=== PATIENT | male | born 1965 | race American Indian/Alaskan Native ===

== ENCOUNTER 2018-10-20 03:33 | Emergency (ER) | payer MEDICARE, MEDICAID ==
[~2018-10-20] VITALS: Ht 177.8 cm; Wt 97.5 kg
[2018-10-20 04:00] VITALS: BP 191/103
[2018-10-20] MEDS ORDERED: cloNIDine HCL 0.1 MG TAB PO ONE (04:15)
[2018-10-20] MEDS ORDERED: IPRATROPIUM BROM 0.5 MG/2.5ML INH SOL NEB ONE (05:45)
[2018-10-20] MEDS ORDERED: ALBUTEROL SULF 2.5 MG/0.5ML(0.5%) NEB SOLN NEB ONE (05:45)
[2018-10-20] MEDS ORDERED: hydrALAZINE HCL 20 MG/ML VL IM ONE (06:15)
== END 2018-10-20 07:18 | disposition home or self-care (01) ==
LOC: ER 03:37
DX: J40 Bronchitis, not specified as acute or chronic (principal)
CPT/HCPCS: 71045; 82962; 94640; 96372; 99283; J0360; J7611; J7644

== ENCOUNTER 2019-05-19 18:00 | Inpatient (IN) | payer OTHER ==
[~2019-05-19] VITALS: Ht 177.8 cm; Wt 92.7 kg
[2019-05-19 19:13] LABS: Basophils # (auto) 0.1 uL; Basophils % (auto) 0.6 % (0.0-2.0); Eosinophils # (auto) 0.1 uL; Eosinophils % (auto) 0.3 % (0.0-7.0); Hematocrit 45.9 % (41.0-53.0); Hemoglobin 15.4 g/dL (13.5-17.5); Lymphocytes # (auto) 1.2 uL; Lymphocytes % (auto) 6.2 % (10.0-50.0); Mean Corpuscular Hemoglobin 28.9 pg (28.0-32.0); Mean Corpuscular Hgb Conc. 33.7 g/dL (32.0-36.0); Mean Corpuscular Volume 85.9 fL (80.0-100.0); Monocytes # (auto) 1.2 uL; Monocytes % (auto) 6.2 % (0.0-12.0); Neutrophils # (auto) 17.2 uL; Neutrophils % (auto) 86.7 % (37.0-80.0); Platelet Count (auto) 265 10^3/uL (140-450); Red Blood Cells 5.34 10^6/uL (4.5-5.90); Red Cell Distribution Width 15.9 % (11.8-14.3); White Blood Cell 19.8 10^3/uL (4.4-10.8)
[2019-05-19 19:34] LABS: Albumin 4.4 g/dL (3.4-5.0); Calcium 9.1 mg/dL (8.5-10.1)
[2019-05-19 19:40] LABS: Bilirubin, Total 0.6 mg/dL (0.2-1.0); Total Protein 8.7 g/dL (6.4-8.2)
[2019-05-19 20:02] LABS: Potassium 2.8 mmol/L (3.5-5.1)
[2019-05-19] MEDS ORDERED: POTASSIUM CHL 20 Meq TABLET PO ONE (20:15)
[2019-05-19] MEDS ORDERED: ONDANSETRON HCL 4 MG/2 ML VIAL IV ONE (20:15)
[2019-05-19] MEDS ORDERED: SODIUM CHLORIDE 0.9% 2,000 ML IV ONE (20:15)
[2019-05-19] MEDS ORDERED: FAMOTIDINE (10MG/ML) 2ML VL IV ONE (21:45)
[2019-05-19 23:18] LABS: Urine Bacteria FEW /hpf (None Seen); Urine Blood 2+ /uL (Negative); Urine Hyaline Cast FEW /lpf (0 - 2); Urine Mucus FEW (None Seen); Urine WBC 1 /hpf (0 - 3)
[2019-05-19 23:33] LABS: Alcohol, Urine < 3.0 mg/dL (0-5); Amphetamine Screen, Urine NEGATIVE (NEGATIVE); Barbiturate Scree,Urine NEGATIVE (NEGATIVE); Benzodiazephine Screen, Urine NEGATIVE (NEGATIVE); Cannabinoid Screen, Urine POSITIVE (NEGATIVE); Cocaine Screen, Urine NEGATIVE (NEGATIVE); Opiate Scree,Urine NEGATIVE (NEGATIVE); Phencyclidine Screen, Urine NEGATIVE (NEGATIVE)
[2019-05-20] MEDS ORDERED: MORPHINE SULF INJ 2 MG/ML SYRINGE 1ML IV PRN (02:45)
[2019-05-20] MEDS ORDERED: ONDANSETRON HCL 4 MG/2 ML VIAL IV PRN (02:45)
[2019-05-20] MEDS ORDERED: DEXTROSE (50%) 50ML SYRG IV PRN (02:45)
[2019-05-20] MEDS ORDERED: ACETAMINOPHEN 325 MG TAB PO PRN (02:45)
[2019-05-20] MEDS ORDERED: SODIUM CHLORIDE 0.9% 500 ML IV ONE (02:45)
[2019-05-20] MEDS ORDERED: NITROGLYCERIN 0.4 MG SL TAB SL PRN (02:45)
[2019-05-20] MEDS ORDERED: TEMAZEPAM 15 MG CAP PO PRN (02:45)
[2019-05-20] MEDS ORDERED: D5W/SOD CHLO 0.9% 1,000 ML IV SCH (02:45)
[2019-05-20] MEDS ORDERED: ENALAPRILAT 1.25 MG/ML-1ML VIAL IV ONE (03:00)
[2019-05-20] MEDS ORDERED: ENOXAPARIN SOD 100 MG/1 ML SYRINGE SC ONE (03:00)
--- NOTE | 2019-05-20 04:00 | NUR ---
Telemetry admit from ER MONI WILILNGHAM admitted to Telemetry. Patient oriented to KARINA GARCIA, primary RN, unit, room 221, bed A, and unit policies regarding patient care and visiting hours. Patient now on continuous telemetry monitoring, tele box #[id number] and telemetry reading on arrival to unit is SR. Patient weighed by bedscale and encouraged to call if they need something. All questions and concerns addressed, call light explained, patient verbalized understanding.
[2019-05-20] MEDS ORDERED: CLON0.1T PO (04:29)
[2019-05-20] MEDS ORDERED: OXYB5SYP4 PO (04:29)
[2019-05-20] MEDS ORDERED: HYDR50TA15 PO (04:29)
[2019-05-20] MEDS ORDERED: PRAV20TA3 PO (04:29)
[2019-05-20] MEDS ORDERED: RANI150C11 PO (04:29)
[2019-05-20] MEDS ORDERED: GEMF600T7 PO (04:29)
[2019-05-20] MEDS ORDERED: FLUO-125 PO (04:29)
[2019-05-20] MEDS ORDERED: METF-370 PO (04:29)
[2019-05-20] MEDS ORDERED: LABE200T18 PO (04:29)
[2019-05-20] MEDS ORDERED: INFLUENZA QUAD 2019-2020 0.5ml SYRG IM ONE (04:45)
[2019-05-20] MEDS ORDERED: PNEUMOCOCCAL VACC POLYS 25 MCG/0.5 ML VIAL IM ONE (04:45)
[2019-05-20 05:00] VITALS: BP 164/78
[2019-05-20] MEDS: InsuLIN REG 1unit/0.01ml Soln (100units/ml) SC SCH ×4 (06:00→23:41)
[2019-05-20] MEDS: cloNIDine HCL 0.1 MG TAB PO SCH ×3 (06:11→21:38)
[2019-05-20] MEDS: ACCU-CHEK COMFORT CURVE STRIP VI SCH ×4 (06:11→23:41)
--- NOTE | 2019-05-20 07:01 | NUR ---
Patients home meds taken to pharmacy
--- NOTE | 2019-05-20 07:30 | NUR ---
Opening Shift Note Assumed care of patient, resting in bed with eyes closed, awoken by name. Patient is A & O x4, no s/s of distress or SOB, no pain noted or reported. Respirations are even and unlabored on RA. Updated on POC and instructed to call for assistance as needed, patient verbalized understanding. Bed locked in lowest position, call light within reach, bed rails up x2. Will continue to monitor Q1h and PRN.
[2019-05-20 08:44] VITALS: BP 159/82
[2019-05-20] MEDS ORDERED: cefTRIAXone 1GM/50ML D5W 50 ML IV SCH (09:00)
[2019-05-20] MEDS ORDERED: ASPirin 81 mg TAB PO SCH (10:00)
[2019-05-20] MEDS: hydrALAZINE HCL 25 MG TAB PO SCH ×2 (10:37→21:37)
[2019-05-20] MEDS: LABETALOL HCL 200 MG TAB PO SCH ×2 (10:38→21:38)
[2019-05-20] MEDS: GEMFIBROZIL 600 MG TAB PO SCH ×2 (10:38→21:38)
[2019-05-20] MEDS: PANTOPRAZOLE 40 MG TAB PO SCH (10:39)
[2019-05-20 11:41] LABS: Albumin 3.3 g/dL (3.4-5.0); Calcium 8.2 mg/dL (8.5-10.1)
[2019-05-20 11:44] LABS: BUN/Creatinine Ratio 9.3; Bilirubin, Total 0.5 mg/dL (0.2-1.0); Total Protein 6.8 g/dL (6.4-8.2)
[2019-05-20 12:05] LABS: Potassium 2.9 mmol/L (3.5-5.1)
--- NOTE | 2019-05-20 12:10 | NUR ---
Critical Lab Value Potassium of 2.9, notified MD Turner, will input new orders for replacement.
[2019-05-20] MEDS ORDERED: POTASSIUM CHLORIDE 40 MEQ, LIDOCAINE 1% (LOCAL ANESTH.) 4 ML in SODIUM CHL 0.9% 100 ML IV ONE (12:30)
[2019-05-20] MEDS ORDERED: POTASSIUM CHL 20 Meq TABLET PO ONE (12:30)
[2019-05-20 13:00] VITALS: BP 151/61
[2019-05-20 17:00] VITALS: BP 154/75
--- NOTE | 2019-05-20 18:39 | NUR ---
PATIENT ROUNDS PATIENT SITTING UP IN BED EATING DINNER WITH FAMILY AT BEDSIDE. NO S/S OF DISTRESS OR SOB, NO PAIN NOTED OR REPORTED AT THIS TIME. WILL ENDORSE CARE TO WEED INSPECTOR RN.
[2019-05-20] MEDS: PRAVASTATIN SODIUM 20 MG TAB PO SCH (21:39)
[2019-05-20 22:00] VITALS: BP 170/97
[2019-05-20] MEDS ORDERED: ATORVASTATIN 20 MG TAB PO SCH (22:00)
[2019-05-21] MEDS: cloNIDine HCL 0.1 MG TAB PO SCH ×5 (04:21→22:14)
[2019-05-21] MEDS: ACCU-CHEK COMFORT CURVE STRIP VI SCH ×3 (05:25→18:19)
[2019-05-21] MEDS: InsuLIN REG 1unit/0.01ml Soln (100units/ml) SC SCH ×3 (05:25→18:00)
[2019-05-21 05:56] VITALS: BP 197/101
[2019-05-21 06:50] LABS: Basophils # (auto) 0 uL; Basophils % (auto) 0.4 % (0.0-2.0); Eosinophils # (auto) 0.2 uL; Eosinophils % (auto) 1.9 % (0.0-7.0); Hematocrit 42.1 % (41.0-53.0); Hemoglobin 13.9 g/dL (13.5-17.5); Lymphocytes # (auto) 1.6 uL; Lymphocytes % (auto) 16.8 % (10.0-50.0); Mean Corpuscular Hgb Conc. 33.1 g/dL (32.0-36.0); Mean Corpuscular Volume 87.6 fL (80.0-100.0); Monocytes % (auto) 10.3 % (0.0-12.0); Neutrophils # (auto) 6.6 uL; Neutrophils % (auto) 70.6 % (37.0-80.0); Platelet Count (auto) 199 10^3/uL (140-450); Red Blood Cells 4.81 10^6/uL (4.5-5.90); Red Cell Distribution Width 16.3 % (11.8-14.3); White Blood Cell 9.3 10^3/uL (4.4-10.8)
[2019-05-21 07:09] LABS: BUN/Creatinine Ratio 12.8; Calcium 8.2 mg/dL (8.5-10.1); Potassium 3.2 mmol/L (3.5-5.1)
[2019-05-21] MEDS ORDERED: ADENOSINE 79 MG in GIVE UN-DILUTED 0 ML IV STA (08:22)
[2019-05-21 09:00] VITALS: BP 186/112
[2019-05-21] MEDS ORDERED: cloNIDine HCL 0.1 MG TAB ONE (12:00)
[2019-05-21] MEDS ORDERED: cloNIDine HCL 0.1 MG TAB PO ONE (12:15)
[2019-05-21] MEDS: PANTOPRAZOLE 40 MG TAB PO SCH (12:55)
[2019-05-21] MEDS: GEMFIBROZIL 600 MG TAB PO SCH ×2 (12:56→22:15)
[2019-05-21] MEDS: LABETALOL HCL 200 MG TAB PO SCH ×2 (12:56→22:15)
[2019-05-21] MEDS: ASPirin 81 mg TAB PO SCH (12:56)
[2019-05-21] MEDS ORDERED: POTASSIUM CHL 10 Meq TABLET PO ONE (14:30)
[2019-05-21] MEDS: NIFEdipine ER 30 MG TAB PO SCH (16:03)
[2019-05-21 16:49] VITALS: BP 190/82
[2019-05-21 16:49] LABS: Protein, Urine 132.4 mg/dL (0.0-11.9)
[2019-05-21 17:09] LABS: Phosphorus 2.8 mg/dL (2.5-4.90)
[2019-05-21] MEDS: hydrALAZINE HCL 25 MG TAB PO SCH (18:37)
--- NOTE | 2019-05-21 19:10 | NUR ---
Opening Shift Note Assumed care of patient, awake and alert. No S/S of distress/SOB or pain. POC discussed and questions answered. Bed is locked in lowest positon with side rails up x2 for safety, call light is within reach and encouraged to call if needs anything. Will continue to monitor for changes Q1hr and PRN.
[2019-05-21 22:00] VITALS: BP 146/80
[2019-05-21] MEDS: DOXAZOSIN MESYL 2 MG TAB PO SCH (22:14)
[2019-05-21] MEDS: PRAVASTATIN SODIUM 20 MG TAB PO SCH (22:15)
[2019-05-22] MEDS: ACCU-CHEK COMFORT CURVE STRIP VI SCH ×5 (00:18→23:53)
[2019-05-22] MEDS: hydrALAZINE HCL 25 MG TAB PO SCH ×2 (02:11→09:44)
[2019-05-22 05:00] VITALS: BP 139/78
[2019-05-22] MEDS: InsuLIN REG 1unit/0.01ml Soln (100units/ml) SC SCH ×5 (05:49→23:54)
[2019-05-22] MEDS: cloNIDine HCL 0.1 MG TAB PO SCH (05:49)
[2019-05-22 09:00] VITALS: BP 154/90
[2019-05-22] MEDS: GEMFIBROZIL 600 MG TAB PO SCH ×2 (09:44→22:05)
[2019-05-22] MEDS: ASPirin 81 mg TAB PO SCH (09:45)
[2019-05-22] MEDS: LABETALOL HCL 200 MG TAB PO SCH ×2 (09:45→22:06)
[2019-05-22] MEDS: NIFEdipine ER 30 MG TAB PO SCH (09:45)
[2019-05-22] MEDS: PANTOPRAZOLE 40 MG TAB PO SCH (09:45)
[2019-05-22] MEDS ORDERED: POTASSIUM CHL 10 Meq TABLET PO SCH (10:00)
[2019-05-22] MEDS: HYDROcodone-ACET 5/325MG TAB PO PRN ×2 (10:14→20:30)
[2019-05-22 10:57] LABS: BUN/Creatinine Ratio 16.6; Calcium 8.8 mg/dL (8.5-10.1); Potassium 3.4 mmol/L (3.5-5.1)
--- NOTE | 2019-05-22 12:18 | NUR ---
Nutrition Assessment Notes please see attached link for complete assessment Est. Needs BW 94 [id number] kcal (23-25 kcal/kgBW), 75-94 gms pro (0.8-1.0 gms/kgBW r/t elev RFT ). Will continue to monitor pertinent labs and reassess nutrient need prn Addendum: 05/22/19 at [address] Amended: Links added.
[2019-05-22] MEDS: SPIRONOLACTONE 25 MG TAB PO SCH ×2 (12:26→17:31)
[2019-05-22 13:00] VITALS: BP 157/85
[2019-05-22 17:00] VITALS: BP 162/90
--- NOTE | 2019-05-22 19:25 | NUR ---
Opening Shift Note Received report from Jasmin ROBBINS. Assumed care of patient, awake and alert, family at bedside. No S/S of distress/SOB or pain. Instructed on POC and to call for assist PRN, will continue to monitor for changes Q1hr and PRN.
[2019-05-22 22:00] VITALS: BP 186/96
[2019-05-22] MEDS: PRAVASTATIN SODIUM 20 MG TAB PO SCH (22:05)
[2019-05-22] MEDS: DOXAZOSIN MESYL 2 MG TAB PO SCH (22:06)
[2019-05-23 05:00] VITALS: BP 166/119
[2019-05-23] MEDS: ACCU-CHEK COMFORT CURVE STRIP VI SCH ×4 (06:19→23:44)
[2019-05-23] MEDS: SPIRONOLACTONE 25 MG TAB PO SCH ×2 (06:19→18:12)
[2019-05-23] MEDS: InsuLIN REG 1unit/0.01ml Soln (100units/ml) SC SCH ×4 (06:20→23:45)
[2019-05-23 07:16] LABS: BUN/Creatinine Ratio 17.8; Calcium 9.1 mg/dL (8.5-10.1); Potassium 3.4 mmol/L (3.5-5.1)
[2019-05-23 09:29] VITALS: BP 188/110
[2019-05-23] MEDS ORDERED: cloNIDine HCL 0.1 MG TAB PO ONE (09:45)
[2019-05-23] MEDS ORDERED: POTASSIUM CHL 20 Meq TABLET PO ONE (09:45)
[2019-05-23] MEDS: ASPirin 81 mg TAB PO SCH (10:16)
[2019-05-23] MEDS: GEMFIBROZIL 600 MG TAB PO SCH ×2 (10:16→22:14)
[2019-05-23] MEDS: NIFEdipine ER 30 MG TAB PO SCH (10:17)
[2019-05-23] MEDS: CHOLECALCIFEROL (VITD3) 1,000 UNIT TAB PO SCH (10:18)
[2019-05-23] MEDS: PANTOPRAZOLE 40 MG TAB PO SCH (10:18)
[2019-05-23] MEDS: LABETALOL HCL 200 MG TAB PO SCH ×2 (10:33→22:14)
[2019-05-23] MEDS: DOXAZOSIN MESYL 2 MG TAB PO SCH ×2 (12:14→22:13)
[2019-05-23 13:00] VITALS: BP 177/102
[2019-05-23 16:51] VITALS: BP 156/87
[2019-05-23] MEDS ORDERED: PNEUMOCOCCAL VACC POLYS 25 MCG/0.5 ML VIAL IM ONE (17:30)
[2019-05-23] MEDS ORDERED: INFLUENZA QUAD 2019-2020 0.5ml SYRG IM ONE (17:30)
--- NOTE | 2019-05-23 19:20 | NUR ---
Opening Shift Note Received report from Jasmin ROBBINS. Assumed care of patient, awake and alert. No S/S of distress/SOB or pain. Instructed on POC and to call for assist PRN, will continue to monitor for changes Q1hr and PRN.
[2019-05-23] MEDS: HYDROcodone-ACET 5/325MG TAB PO PRN (21:11)
[2019-05-23 22:00] VITALS: BP 157/100
[2019-05-23] MEDS: PRAVASTATIN SODIUM 20 MG TAB PO SCH (22:14)
[2019-05-23] MEDS: cloNIDine HCL 0.1 MG TAB PO PRN (23:53)
[2019-05-24 05:00] VITALS: BP 156/103
[2019-05-24] MEDS: SPIRONOLACTONE 25 MG TAB PO SCH ×2 (06:24→17:52)
[2019-05-24] MEDS: ACCU-CHEK COMFORT CURVE STRIP VI SCH ×4 (06:24→23:38)
[2019-05-24] MEDS: InsuLIN REG 1unit/0.01ml Soln (100units/ml) SC SCH ×4 (06:25→23:38)
[2019-05-24 06:38] LABS: Basophils # (auto) 0.1 uL; Basophils % (auto) 0.9 % (0.0-2.0); Eosinophils # (auto) 0.3 uL; Eosinophils % (auto) 2.3 % (0.0-7.0); Hematocrit 47.8 % (41.0-53.0); Hemoglobin 15.5 g/dL (13.5-17.5); Lymphocytes # (auto) 1.2 uL; Lymphocytes % (auto) 10.4 % (10.0-50.0); Mean Corpuscular Hemoglobin 28.5 pg (28.0-32.0); Mean Corpuscular Hgb Conc. 32.5 g/dL (32.0-36.0); Mean Corpuscular Volume 87.8 fL (80.0-100.0); Monocytes # (auto) 1.1 uL; Monocytes % (auto) 9.3 % (0.0-12.0); Neutrophils # (auto) 8.9 uL; Neutrophils % (auto) 77.1 % (37.0-80.0); Platelet Count (auto) 241 10^3/uL (140-450); Red Blood Cells 5.44 10^6/uL (4.5-5.90); Red Cell Distribution Width 15.8 % (11.8-14.3); White Blood Cell 11.6 10^3/uL (4.4-10.8)
[2019-05-24] MEDS: HYDROcodone-ACET 5/325MG TAB PO PRN ×3 (06:57→20:26)
[2019-05-24 07:10] LABS: BUN/Creatinine Ratio 19.5; Calcium 9.2 mg/dL (8.5-10.1)
[2019-05-24 09:00] VITALS: BP 164/108
[2019-05-24] MEDS ORDERED: VALSARTAN 80 MG TAB PO SCH (10:00)
[2019-05-24] MEDS: DOXAZOSIN MESYL 2 MG TAB PO SCH ×2 (10:14→21:21)
[2019-05-24] MEDS: LABETALOL HCL 200 MG TAB PO SCH ×2 (10:14→21:23)
[2019-05-24] MEDS: GEMFIBROZIL 600 MG TAB PO SCH ×2 (10:15→21:21)
[2019-05-24] MEDS: PANTOPRAZOLE 40 MG TAB PO SCH (10:15)
[2019-05-24] MEDS: CHOLECALCIFEROL (VITD3) 1,000 UNIT TAB PO SCH (10:15)
[2019-05-24] MEDS: NIFEdipine ER 30 MG TAB PO SCH (10:15)
[2019-05-24 13:00] VITALS: BP 160/89
[2019-05-24 17:00] VITALS: BP 142/78
--- NOTE | 2019-05-24 19:45 | NUR ---
Opening Shift Note Assumed care of patient, awake and alert. No S/S of distress/SOB or pain. Family at bedside. Instructed on POC and to call for assist PRN, patient verbalized understanding, call light within reach, will continue to monitor for changes Q1hr and PRN.
[2019-05-24] MEDS: PRAVASTATIN SODIUM 20 MG TAB PO SCH (21:21)
[2019-05-24 22:00] VITALS: BP 148/90
[2019-05-25] MEDS: HYDROcodone-ACET 5/325MG TAB PO PRN ×3 (04:50→19:30)
[2019-05-25 05:00] VITALS: BP 168/98
[2019-05-25] MEDS: SPIRONOLACTONE 25 MG TAB PO SCH ×3 (05:48→22:00)
[2019-05-25] MEDS: ACCU-CHEK COMFORT CURVE STRIP VI SCH ×4 (05:49→23:49)
[2019-05-25] MEDS: InsuLIN REG 1unit/0.01ml Soln (100units/ml) SC SCH ×4 (05:49→23:48)
[2019-05-25 06:27] LABS: BUN/Creatinine Ratio 18.9; Calcium 9.2 mg/dL (8.5-10.1); Potassium 4.2 mmol/L (3.5-5.1)
[2019-05-25] MEDS: cloNIDine HCL 0.1 MG TAB PO PRN (07:03)
[2019-05-25 09:00] VITALS: BP 165/101
[2019-05-25] MEDS: DOXAZOSIN MESYL 2 MG TAB PO SCH (09:42)
[2019-05-25] MEDS: PANTOPRAZOLE 40 MG TAB PO SCH (09:43)
[2019-05-25] MEDS: GEMFIBROZIL 600 MG TAB PO SCH ×2 (09:43→22:00)
[2019-05-25] MEDS: LABETALOL HCL 200 MG TAB PO SCH ×4 (09:43→22:06)
[2019-05-25] MEDS: CHOLECALCIFEROL (VITD3) 1,000 UNIT TAB PO SCH (09:43)
[2019-05-25] MEDS: NIFEdipine ER 30 MG TAB PO SCH ×3 (09:44→22:03)
[2019-05-25] MEDS ORDERED: SPIRONOLACTONE 25 MG TAB PO SCH (10:00)
[2019-05-25 12:00] VITALS: BP 134/89
--- NOTE | 2019-05-25 14:40 | NUR ---
Nutrition Follow-up Notes Wt.: 92.7 kg as of yesterday. Pt's asleep, no immediate family member at bedside during rounds this morning. Pt's no signs of distress noted earlier, currently on Consistent Standard Carb: 60 gms/meal, Cardiac, Low Purine diet with adequate PO intake aeb 100% ave. consumed meals (x6) in last 2.5 days. Est. Needs BW 94 [id number] kcal (23-25 kcal/kgBW), 75-94 gms pro (0.8-1.0 gms/kgBW r/t elev RFT ). Will continue to monitor pertinent labs and reassess nutrient need prn Labs: Gluc 135 H, BUN 36 H, Cr 1.90 H Skin: Pascual scale 19, low risk, skin intact per carpet or rug layer helper. GI: Pt had 2x BM yesterday per carpet or rug layer helper. PES: Altered nutrition related lab values r/t current/chronic medical condition aeb elev lipids, RFT, hyperurecemia, hypocalcmeia, hyperglycemia Will continue to monitor PO intake, skin status, pertinent labs and weight trend. F/u in 3 to 5 days. Rec.: 1.) Continue close supervision during meals. 2.) If renal labs continue trending up, consider Renal Specific: 70 gms pro 2 gms Na in addition to current therapeutic diet. 3.) If Albumin continues trending down with improved renal labs, consider Prostat 1 pkt BID. 4.) Refer pt to CDE/RD for further nutrition education and weight monitoring upon discharge. 5.) Continue current plan of care.
[2019-05-25 17:00] VITALS: BP 116/67
--- NOTE | 2019-05-25 20:30 | NUR ---
RECEIVE IN BED WITH FAMILY AT BEDSIDE IS HAPPY THAT HIS BLOOD PRESSURE IS DOING BETTER NO VOICED COMPLAINT
[2019-05-25] MEDS: PRAVASTATIN SODIUM 20 MG TAB PO SCH (22:01)
[2019-05-25 22:06] VITALS: BP 131/83
[2019-05-26 05:56] VITALS: BP 137/75
[2019-05-26] MEDS: InsuLIN REG 1unit/0.01ml Soln (100units/ml) SC SCH ×2 (06:00→12:00)
[2019-05-26] MEDS: LABETALOL HCL 200 MG TAB PO SCH ×2 (06:01→13:51)
[2019-05-26] MEDS: ACCU-CHEK COMFORT CURVE STRIP VI SCH ×2 (06:05→11:47)
[2019-05-26 07:31] LABS: BUN/Creatinine Ratio 20.3; Calcium 9.2 mg/dL (8.5-10.1); Potassium 4.3 mmol/L (3.5-5.1)
[2019-05-26 09:00] VITALS: BP 127/93
[2019-05-26] MEDS: GEMFIBROZIL 600 MG TAB PO SCH (09:41)
[2019-05-26] MEDS: PANTOPRAZOLE 40 MG TAB PO SCH (09:41)
[2019-05-26] MEDS: CHOLECALCIFEROL (VITD3) 1,000 UNIT TAB PO SCH (09:41)
[2019-05-26] MEDS: NIFEdipine ER 30 MG TAB PO SCH (09:42)
[2019-05-26] MEDS: SPIRONOLACTONE 25 MG TAB PO SCH (09:42)
[2019-05-26] MEDS ORDERED: PANT40T PO (09:58)
[2019-05-26] MEDS ORDERED: LAB200T PO (09:58)
[2019-05-26] MEDS ORDERED: SPIR25TA88 PO (09:58)
[2019-05-26] MEDS ORDERED: NIFE30TA76 PO (09:58)
[2019-05-26] MEDS ORDERED: CHOL1000 PO (09:58)
[2019-05-26] MEDS ORDERED: GLIP-218 PO (10:00)
[2019-05-26] MEDS ORDERED: [UNRECOGNIZED DRUG - CODE] BC (10:16)
[2019-05-26] MEDS: HYDROcodone-ACET 5/325MG TAB PO PRN (10:22)
[2019-05-26 13:00] VITALS: BP 154/88
--- NOTE | 2019-05-26 16:14 | NUR ---
PT DISCHARGED HOME WITH FAMILY IN ATTENDANCE. ALL PAPERWORK SIGNED AND COMPLETED, VERBALIZED UNDERSTANDING.
== END 2019-05-26 15:30 | disposition home or self-care (01) | DRG 304 ==
LOC: EDBD 18:00 → ER 18:00 → TELE-CENTR 18:01
PROVIDERS: ADMIT Nurse Practitioner; ATTEND Internal Medicine
PROC: 3E0234Z Introduction of Serum, Toxoid and Vaccine into Muscle, Percutaneous Approach (ICD-10-PCS; principal; 2019-05-23)
PROC: 3E02340 Introduction of Influenza Vaccine into Muscle, Percutaneous Approach (ICD-10-PCS; 2019-05-23)
DX: I16.0 Hypertensive urgency (principal); N17.0 Acute kidney failure with tubular necrosis; E87.2 Acidosis; E87.6 Hypokalemia; E11.21 Type 2 diabetes mellitus with diabetic nephropathy; D72.823 Leukemoid reaction; D35.00 Benign neoplasm of unspecified adrenal gland; E66.9 Obesity, unspecified; E78.5 Hyperlipidemia, unspecified; M51.36 Other intervertebral disc degeneration, lumbar region; D35.02 Benign neoplasm of left adrenal gland; D64.9 Anemia, unspecified; E11.22 Type 2 diabetes mellitus with diabetic chronic kidney disease; E26.9 Hyperaldosteronism, unspecified; E86.0 Dehydration; E87.5 Hyperkalemia; F12.90 Cannabis use, unspecified, uncomplicated; G40.909 Epilepsy, unspecified, not intractable, without status epilepticus; I13.10 Hypertensive heart and chronic kidney disease without heart failure, with stage 1 through stage 4 chronic kidney disease, or unspecified chronic kidney disease; K14.0 Glossitis; L40.9 Psoriasis, unspecified; N18.3 Chronic kidney disease, stage 3 (moderate); Z79.899 Other long term (current) drug therapy; Z79.82 Long term (current) use of aspirin; Z68.29 Body mass index [BMI] 29.0-29.9, adult; Z23 Encounter for immunization
CPT/HCPCS: 36415; 71045; 74176; 78452; 80048; 80053; 80061; 80307; 81001; 82088; 82306; 82570; 82962; 83036; 83605; 83690; 83735; 83835; 83880; 83970; 84100; 84156; 84244; 84300; 84484; 84550; 85025; 87040; 93005; 93017; 93306; 93975; 96361; 96374; 96375; G0378; J0153; J0696; J1815; J2001; J2405; J3490; J7042

== ENCOUNTER 2021-05-11 20:22 | Emergency (ER) | payer OTHER ==
[~2021-05-11] VITALS: Ht 177.8 cm; Wt 103.4 kg
[~2021-05-11 20:22] MED LIST: CHOL1TAB30 PO; FLUO-125 PO; GEMF-19 PO; GLIP-218 PO; LABE200T6 PO; NIFE1TAB31 PO; OXYB5SYP4 PO; PANT40T PO; PRAV20TA3 PO; SPIR25TA PO; [UNRECOGNIZED DRUG - CODE] BC
[2021-05-11 21:02] LABS: Basophils # (auto) 0.1 10 ^3/uL (0-0.2); Basophils % (auto) 1.1 % (0.0-2.0); Eosinophils # (auto) 0.1 10 ^3/uL (0-0.8); Eosinophils % (auto) 0.9 % (0.0-7.0); Hematocrit 47.5 % (41.0-53.0); Hemoglobin 15.9 g/dL (13.5-17.5); Lymphocytes # (auto) 1.4 10 ^3/uL (0.4-5.4); Lymphocytes % (auto) 13.1 % (10.0-50.0); Mean Corpuscular Hemoglobin 30.6 pg (28.0-32.0); Mean Corpuscular Hgb Conc. 33.4 g/dL (32.0-36.0); Mean Corpuscular Volume 91.5 fL (80.0-100.0); Monocytes # (auto) 0.8 10 ^3/uL (0-1.3); Monocytes % (auto) 7.8 % (0.0-12.0); Neutrophils # (auto) 8.1 10 ^3/uL (1.6-8.6); Neutrophils % (auto) 77.1 % (37.0-80.0); Red Blood Cells 5.18 10^6/uL (4.5-5.90); Red Cell Distribution Width 16.1 % (11.8-14.3); White Blood Cell 10.4 10^3/uL (4.4-10.8)
[2021-05-11 21:17] LABS: Salicylate 1.9 mg/dL (2.8-20.0)
[2021-05-11 21:19] LABS: Alanine Aminotransferase 30 U/L (16-61); Albumin 3.5 g/dL (3.4-5.0); Anion Gap 16 (5-15); Blood Urea Nitrogen 21 mg/dL (7-18); Calcium 8.7 mg/dL (8.5-10.1); Carbon Dioxide 20 mmol/L (21-32); Chloride 99 mmol/L (98-107); Glucose 292 mg/dL (74-106); Magnesium 2.5 mg/dL (1.6-2.6); Potassium 3.1 mmol/L (3.5-5.1); Sodium 135 mmol/L (136-145)
[2021-05-11 21:22] LABS: Acetaminophen < 2.0 ug/mL (10-30)
[2021-05-11 21:24] LABS: Alkaline Phosphatase 94 U/L (45-117); Aspartate Aminotransferase 19 U/L (15-37); BUN/Creatinine Ratio 9.8; Bilirubin, Total 0.3 mg/dL (0.2-1.0); Blood Alcohol < 3.0 mg/dL (0-5); GFR African American 41 mL/min; GFR Non-African American 34 mL/min
[2021-05-12 05:15] VITALS: BP 238/162
[2021-05-12] MEDS ORDERED: hydrALAZINE HCL 20 MG/ML VL IV ONE (05:15)
== END 2021-05-12 12:06 | disposition home or self-care (01) ==
LOC: ER 20:22 → EDBD 20:22 → EDUNIT# 20:22 → ER 05-12 12:06
DX: R46.89 Other symptoms and signs involving appearance and behavior (principal); R51.9 Headache, unspecified; R00.0 Tachycardia, unspecified; I10 Essential (primary) hypertension; E11.9 Type 2 diabetes mellitus without complications; Z79.899 Other long term (current) drug therapy
CPT/HCPCS: 36415; 70450; 71045; 80053; 80320; 80329; 83735; 84484; 85025; 93005; 96374; 99285; J0360

== ENCOUNTER 2021-05-14 03:34 | Inpatient (IN) | payer OTHER ==
[~2021-05-14] VITALS: Ht 182.9 cm; Wt 92.7 kg
[2021-05-14 05:06] LABS: Basophils # (auto) 0.1 10 ^3/uL (0-0.2); Basophils % (auto) 0.7 % (0.0-2.0); Eosinophils # (auto) 0 10 ^3/uL (0-0.8); Eosinophils % (auto) 0.3 % (0.0-7.0); Hematocrit 47.1 % (41.0-53.0); Hemoglobin 15.6 g/dL (13.5-17.5); Lymphocytes # (auto) 1.2 10 ^3/uL (0.4-5.4); Lymphocytes % (auto) 8.4 % (10.0-50.0); Mean Corpuscular Hgb Conc. 33.2 g/dL (32.0-36.0); Mean Corpuscular Volume 90.6 fL (80.0-100.0); Monocytes % (auto) 7.3 % (0.0-12.0); Neutrophils # (auto) 11.9 10 ^3/uL (1.6-8.6); Neutrophils % (auto) 83.3 % (37.0-80.0); Red Cell Distribution Width 16.3 % (11.8-14.3); White Blood Cell 14.3 10^3/uL (4.4-10.8)
[2021-05-14 05:21] LABS: INR 1.05 (0.9-1.15); Partial Thromboplastin Time 28.7 sec (23.6-33.0)
[2021-05-14 05:58] LABS: Chloride 102 mmol/L (98-107); Sodium 140 mmol/L (136-145)
[2021-05-14 06:11] LABS: Alanine Aminotransferase 47 U/L (16-61); Albumin 3.3 g/dL (3.4-5.0); Anion Gap 14 (5-15); Aspartate Aminotransferase 67 U/L (15-37); BUN/Creatinine Ratio 13.9; Blood Alcohol < 3.0 mg/dL (0-5); Blood Urea Nitrogen 32 mg/dL (7-18); Calcium 8.4 mg/dL (8.5-10.1); Carbon Dioxide 24 mmol/L (21-32); GFR African American 38 mL/min; GFR Non-African American 31 mL/min; Glucose 137 mg/dL (74-106); Magnesium 2.4 mg/dL (1.6-2.6)
[2021-05-14 06:16] LABS: Alkaline Phosphatase 81 U/L (45-117); Bilirubin, Total 0.9 mg/dL (0.2-1.0)
[2021-05-14 06:20] LABS: Potassium 2.2 mmol/L (3.5-5.1)
[2021-05-14] MEDS ORDERED: SODIUM CHLORIDE 0.9% 1,000 ML IV ONE ×2 (07:15)
[2021-05-14] MEDS ORDERED: POTASSIUM EFFERVESENT TAB 25 MEQ PO ONE ×2 (07:45→09:30)
[2021-05-14] MEDS ORDERED: ENOXAPARIN SOD 100 MG/1 ML SYRINGE SC ONE (08:15)
[2021-05-14 08:21] LABS: Urine Bacteria NONE SEEN /hpf (None Seen); Urine Blood 1+ /uL (Negative); Urine Hyaline Cast FEW /lpf (0 - 2); Urine Specific Gravity 1.014 (1.001-1.035); Urine WBC 1 /hpf (0 - 3)
[2021-05-14 08:25] LABS: Alcohol, Urine < 3.0 mg/dL (0-10); Amphetamine Screen, Urine NEGATIVE (NEGATIVE); Barbiturate Scree,Urine NEGATIVE (NEGATIVE); Benzodiazephine Screen, Urine NEGATIVE (NEGATIVE); Cannabinoid Screen, Urine POSITIVE (NEGATIVE); Cocaine Screen, Urine NEGATIVE (NEGATIVE); Phencyclidine Screen, Urine NEGATIVE (NEGATIVE)
[2021-05-14 08:33] LABS: Opiate Scree,Urine NEGATIVE (NEGATIVE)
[2021-05-14] MEDS ORDERED: cloNIDine HCL 0.1 MG TAB PO ONE (09:30)
[2021-05-14] MEDS ORDERED: HYDROcodone-ACET 5/325MG TAB PO PRN (17:15)
[2021-05-14] MEDS ORDERED: ALBUTEROL SULF 2.5 MG/0.5ML(0.5%) NEB SOLN NEB PRN (17:15)
[2021-05-14] MEDS ORDERED: ACETAMINOPHEN 500 MG TAB PO PRN (17:15)
[2021-05-14] MEDS ORDERED: MORPHINE SULFATE INJECTION 2 MG/ML SYRG IV PRN ×2 (17:15)
[2021-05-14] MEDS ORDERED: IPRATROPIUM BROM 0.5 MG/2.5ML INH SOL NEB PRN (17:15)
[2021-05-14] MEDS ORDERED: ONDANSETRON HCL 4 MG/2 ML VIAL IV PRN (17:15)
[2021-05-14] MEDS ORDERED: SOD CHL 0.9%/ KCL 40MEQ 1,000 ML IV ONE (17:15)
[2021-05-14] MEDS ORDERED: NITROGLYCERIN 0.4 MG SL TAB SL PRN (17:15)
[2021-05-14] MEDS ORDERED: levoFLOXacin 500MG 100 ML IV ONE (17:30)
[2021-05-14] MEDS: GEMFIBROZIL 600 MG TAB PO SCH (21:24)
[2021-05-14] MEDS: LABETALOL HCL 200 MG TAB PO SCH (21:24)
[2021-05-14] MEDS: SPIRONOLACTONE 25 MG TAB PO SCH (21:24)
[2021-05-14] MEDS: NIFEdipine ER 30 MG TAB PO SCH (21:25)
[2021-05-14] MEDS ORDERED: HALOPERIDOL LACTATE 5 MG/ML INJ VIAL IM ONE (23:45)
[2021-05-14] MEDS ORDERED: LORazepam 2MG/ML-1ML VIAL IV ONE (23:45)
[2021-05-14] MEDS ORDERED: diphenhdrAMINE HCL 50 MG/1 ML VL IV ONE (23:45)
[2021-05-15 02:13] VITALS: BP 157/91
[2021-05-15] MEDS: LABETALOL HCL 200 MG TAB PO SCH ×3 (04:09→22:21)
[2021-05-15 07:33] LABS: BUN/Creatinine Ratio 15.1; Calcium 7.8 mg/dL (8.5-10.1)
[2021-05-15] MEDS ORDERED: HALOPERIDOL LACTATE 5 MG/ML INJ VIAL IM PRN (09:15)
[2021-05-15] MEDS ORDERED: LORazepam 2MG/ML-1ML VIAL IV PRN (09:15)
[2021-05-15 09:38] LABS: Potassium 2.9 mmol/L (3.5-5.1)
[2021-05-15] MEDS: CHOLECALCIFEROL (VITD3) 1,000UNIT=25mCg TAB PO SCH (10:00)
[2021-05-15] MEDS: GEMFIBROZIL 600 MG TAB PO SCH ×2 (10:00→22:20)
[2021-05-15] MEDS: THIAMINE HCL 100 MG TAB PO SCH (10:00)
[2021-05-15] MEDS: ASPirin 81 mg TAB PO SCH (10:00)
[2021-05-15] MEDS: FLUoxetine HCL 20 MG CAP PO SCH (10:00)
[2021-05-15] MEDS: SPIRONOLACTONE 25 MG TAB PO SCH ×2 (10:00→22:20)
[2021-05-15] MEDS: MULTIPLE VITAMIN TAB PO SCH (10:00)
[2021-05-15] MEDS: PANTOPRAZOLE 40 MG TAB PO SCH (10:00)
[2021-05-15] MEDS ORDERED: POTASSIUM EFFERVESENT TAB 25 MEQ PO ONE (10:15)
[2021-05-15] MEDS ORDERED: POTASSIUM CHLORIDE 20 MEQ, LIDOCAINE 1% (LOCAL ANESTH.) 2 ML in SODIUM CHL 0.9% 100 ML IV ONE (10:15)
[2021-05-15] MEDS: NIFEdipine ER 30 MG TAB PO SCH (11:08)
[2021-05-15] MEDS: levoFLOXacin 500MG 100 ML IV SCH (11:37)
[2021-05-15] MEDS ORDERED: HALOPERIDOL LACTATE 5 MG/ML INJ VIAL IV PRN (12:15)
[2021-05-15] MEDS ORDERED: POTASSIUM CHL 20MEQ/100ML 100 ML IV ONE (12:15)
[2021-05-15] MEDS: LABETALOL HCL 5 MG/ML 4ML SYRINGE IV PRN ×2 (12:53→18:05)
[2021-05-16] MEDS: LABETALOL HCL 200 MG TAB PO SCH ×4 (06:40→23:17)
[2021-05-16 07:26] LABS: Basophils # (auto) 0.1 10 ^3/uL (0-0.2); Basophils % (auto) 1.2 % (0.0-2.0); Eosinophils # (auto) 0.1 10 ^3/uL (0-0.8); Eosinophils % (auto) 1.6 % (0.0-7.0); Hematocrit 43.9 % (41.0-53.0); Hemoglobin 15.2 g/dL (13.5-17.5); Lymphocytes # (auto) 1.4 10 ^3/uL (0.4-5.4); Lymphocytes % (auto) 15.1 % (10.0-50.0); Mean Corpuscular Hemoglobin 31.4 pg (28.0-32.0); Mean Corpuscular Hgb Conc. 34.6 g/dL (32.0-36.0); Mean Corpuscular Volume 90.8 fL (80.0-100.0); Monocytes # (auto) 0.8 10 ^3/uL (0-1.3); Monocytes % (auto) 8.4 % (0.0-12.0); Neutrophils # (auto) 6.8 10 ^3/uL (1.6-8.6); Neutrophils % (auto) 73.7 % (37.0-80.0); Red Blood Cells 4.84 10^6/uL (4.5-5.90); Red Cell Distribution Width 16.1 % (11.8-14.3); White Blood Cell 9.2 10^3/uL (4.4-10.8)
[2021-05-16 07:38] LABS: Calcium 8.2 mg/dL (8.5-10.1)
[2021-05-16 07:40] LABS: BUN/Creatinine Ratio 12.4
[2021-05-16 09:46] LABS: Potassium 2.5 mmol/L (3.5-5.1)
[2021-05-16] MEDS ORDERED: POTASSIUM EFFERVESENT TAB 25 MEQ PO ONE (10:15)
[2021-05-16] MEDS ORDERED: POTASSIUM CHLORIDE 40 MEQ, LIDOCAINE 1% (LOCAL ANESTH.) 4 ML in SODIUM CHL 0.9% 250 ML IV ONE (10:15)
[2021-05-16] MEDS: ASPirin 81 mg TAB PO SCH (10:26)
[2021-05-16] MEDS: PANTOPRAZOLE 40 MG TAB PO SCH (10:26)
[2021-05-16] MEDS: NIFEdipine ER 30 MG TAB PO SCH (10:26)
[2021-05-16] MEDS: MULTIPLE VITAMIN TAB PO SCH (10:26)
[2021-05-16] MEDS: CHOLECALCIFEROL (VITD3) 1,000UNIT=25mCg TAB PO SCH (10:26)
[2021-05-16] MEDS: GEMFIBROZIL 600 MG TAB PO SCH ×2 (10:26→23:15)
[2021-05-16] MEDS: FLUoxetine HCL 20 MG CAP PO SCH (10:26)
[2021-05-16] MEDS: THIAMINE HCL 100 MG TAB PO SCH (10:26)
[2021-05-16] MEDS: SPIRONOLACTONE 25 MG TAB PO SCH ×2 (10:26→23:15)
[2021-05-16] MEDS: levoFLOXacin 500MG 100 ML IV SCH (10:53)
[2021-05-16 18:23] VITALS: BP 154/88
[2021-05-16 22:00] VITALS: BP 124/78
[2021-05-17 05:26] VITALS: BP 119/80
[2021-05-17] MEDS: LABETALOL HCL 200 MG TAB PO SCH ×3 (05:44→14:15)
[2021-05-17 08:00] VITALS: BP 126/88
[2021-05-17 09:00] VITALS: BP 126/88
[2021-05-17] MEDS: levoFLOXacin 500MG 100 ML IV SCH (09:35)
[2021-05-17] MEDS: FLUoxetine HCL 20 MG CAP PO SCH (09:36)
[2021-05-17] MEDS: PANTOPRAZOLE 40 MG TAB PO SCH (09:36)
[2021-05-17] MEDS: NIFEdipine ER 30 MG TAB PO SCH (09:37)
[2021-05-17] MEDS: MULTIPLE VITAMIN TAB PO SCH (09:38)
[2021-05-17] MEDS: CHOLECALCIFEROL (VITD3) 1,000UNIT=25mCg TAB PO SCH (09:38)
[2021-05-17] MEDS: THIAMINE HCL 100 MG TAB PO SCH (09:38)
[2021-05-17] MEDS: ASPirin 81 mg TAB PO SCH (09:38)
[2021-05-17] MEDS: SPIRONOLACTONE 25 MG TAB PO SCH (09:39)
[2021-05-17] MEDS: GEMFIBROZIL 600 MG TAB PO SCH (09:48)
[2021-05-17] MEDS ORDERED: POTASSIUM CHL 20 Meq TABLET PO ONE (10:45)
[2021-05-17 13:00] VITALS: BP 146/90
[2021-05-17 14:31] VITALS: BP 146/90
== END 2021-05-17 15:10 | disposition home or self-care (01) | DRG 871 ==
LOC: ER 03:34 → EDBD 03:34 → TELE 17:09 → TELE-WESTW 05-16 17:43
PROVIDERS: ADMIT Nurse Practitioner Acute Care; ATTEND Nurse Practitioner Acute Care
DX: A41.9 Sepsis, unspecified organism (principal); I21.4 Non-ST elevation (NSTEMI) myocardial infarction; N17.0 Acute kidney failure with tubular necrosis; G92.9 Unspecified toxic encephalopathy; F23 Brief psychotic disorder; I16.1 Hypertensive emergency; E87.6 Hypokalemia; E66.9 Obesity, unspecified; N18.32 Chronic kidney disease, stage 3b; E11.22 Type 2 diabetes mellitus with diabetic chronic kidney disease; E78.5 Hyperlipidemia, unspecified; R56.9 Unspecified convulsions; Z20.822 Contact with and (suspected) exposure to COVID-19; F12.10 Cannabis abuse, uncomplicated; I12.9 Hypertensive chronic kidney disease with stage 1 through stage 4 chronic kidney disease, or unspecified chronic kidney disease; Z79.899 Other long term (current) drug therapy; Z86.73 Personal history of transient ischemic attack (TIA), and cerebral infarction without residual deficits; Z59.00 Homelessness unspecified; Z79.84 Long term (current) use of oral hypoglycemic drugs; Z91.19 Patient's noncompliance with other medical treatment and regimen; Z91.041 Radiographic dye allergy status; Z68.31 Body mass index [BMI] 31.0-31.9, adult
CPT/HCPCS: 36415; 70450; 80048; 80053; 80307; 80320; 81001; 83036; 83605; 83735; 83880; 84132; 84443; 84484; 85025; 85379; 85610; 85730; 87040; 87426; 93005; 96361; 96365; 96366; 96368; 96372; 96375; G0378; J1956; J2001